=== PATIENT | female | born 1950 | race Caucasian/White ===

== ENCOUNTER → 2016-10-12 | Outpatient (CLI) | payer OTHER | LOC: RAD 01:09 | DX: Z12.31 Encounter for screening mammogram for malignant neoplasm of breast (principal) ==

== ENCOUNTER → 2017-10-14 | Outpatient (CLI) | payer OTHER | LOC: ULTRA 01:32 → RAD 01:32 | DX: Z12.31 Encounter for screening mammogram for malignant neoplasm of breast (principal); K80.20 Calculus of gallbladder without cholecystitis without obstruction ==

== ENCOUNTER → 2018-10-01 | Outpatient (CLI) | payer OTHER | LOC: RAD 00:24 | DX: Z12.31 Encounter for screening mammogram for malignant neoplasm of breast (principal) ==

== ENCOUNTER → 2019-10-22 | Outpatient (CLI) | payer OTHER | LOC: BC 10-21 12:36 | PROVIDERS: ATTEND Internal Medicine | DX: Z12.31 Encounter for screening mammogram for malignant neoplasm of breast (principal) ==

== ENCOUNTER → 2019-11-05 | Outpatient (CLI) | payer OTHER | LOC: BC 08:50 | PROVIDERS: ATTEND Radiology Diagnostic Radiology | DX: N63.0 Unspecified lump in unspecified breast (principal); N64.89 Other specified disorders of breast ==